=== PATIENT | female | born 1975 | race Asian ===

== ENCOUNTER 2017-06-03 14:02 | Inpatient (IN) | payer MEDICARE, OTHER, SELFPAY ==
[~2017-06-03] VITALS: Ht 157.5 cm; Wt 73.8 kg
[2017-06-03] MEDS ORDERED: SODIUM CHLORIDE FLUSH 10ML SYR IVF ONE (14:30)
[2017-06-03 14:50] LABS: HEMATOCRIT 43.2 % (34.6-47.8); HEMOGLOBIN 14.5 g/dL (11.7-16.4); WHITE BLOOD COUNT 6.3 x10^3/uL (3.4-10)
[2017-06-03 15:04] LABS: BLOOD UREA NITROGEN 8 mg/dL (7-18)
[2017-06-03 15:06] LABS: ASPARTATE AMINO TRANSFERASE 30 U/L (15-37)
[2017-06-03 15:28] LABS: ACETAMINOPHEN < 2 mcg/mL (10-30); IS PT STATUS REG ER OR PRE ER? YES
[2017-06-03 16:43] LABS: DAU SCREEN DISCLAIMER
[2017-06-03 16:49] LABS: PATH.CAST-FLAG NOT PRESENT; SPERM-FLAG NOT PRESENT; SRC-FLAG NOT PRESENT; XTAL-FLAG NOT PRESENT; YLC-FLAG NOT PRESENT
[2017-06-03] MEDS ORDERED: CEFTRIAXONE PMX 1GM/50ML 50 ML IV ONE (17:30)
[2017-06-03] MEDS ORDERED: CEFTRIAXONE PMX 1GM/50ML 50 ML ONE (18:09)
[2017-06-03] MEDS ORDERED: ACETAMINOPHEN 325 MG TABLET PO PRN (21:00)
[2017-06-03] MEDS ORDERED: ONDANSETRON 2MG/ML, 2ML IVPush PRN (21:00)
[2017-06-03] MEDS ORDERED: POTASSIUM CHLORIDE 20 MEQ TAB.ER.PRT ONE (21:04)
[2017-06-03] MEDS: POTASSIUM CHLORIDE 20 MEQ TAB.ER.PRT PO SCH (21:08)
[2017-06-03] MEDS: SODIUM CHLORIDE 0.9% 1,000 ML IV SCH (21:09)
[2017-06-03 23:20] VITALS: BP 146/86
[2017-06-04 03:17] VITALS: BP 117/78
[2017-06-04] MEDS: SODIUM CHLORIDE 0.9% 1,000 ML IV SCH ×2 (06:27→17:30)
[2017-06-04 07:08] VITALS: BP 132/84
[2017-06-04] MEDS: POTASSIUM CHLORIDE 20 MEQ TAB.ER.PRT PO SCH ×2 (08:56→17:31)
[2017-06-04 12:45] VITALS: BP 144/81
[2017-06-04 19:59] VITALS: BP 135/86
[2017-06-05 01:30] VITALS: BP 123/83
[2017-06-05] MEDS: SODIUM CHLORIDE 0.9% 1,000 ML IV SCH ×2 (03:35→18:49)
[2017-06-05 05:17] LABS: HEMATOCRIT 41.7 % (34.6-47.8); HEMOGLOBIN 13.9 g/dL (11.7-16.4); WHITE BLOOD COUNT 5.5 x10^3/uL (3.4-10)
[2017-06-05 05:25] LABS: BLOOD UREA NITROGEN 5 mg/dL (7-18)
[2017-06-05 08:20] VITALS: BP 147/88
[2017-06-05] MEDS: POTASSIUM CHLORIDE 20 MEQ TAB.ER.PRT PO SCH (08:42)
[2017-06-05] MEDS ORDERED: DOCUSATE 100 MG CAPSULE PO PRN (11:30)
[2017-06-05] MEDS ORDERED: ONDANSETRON ODT 4 MG PO PRN (11:30)
[2017-06-05] MEDS ORDERED: POLYETHYLENE GLYCOL 17 GM PACKET PO PRN (11:30)
[2017-06-05] MEDS ORDERED: BISACODYL 10 MG SUPP PR PRN (11:30)
[2017-06-05 13:20] VITALS: BP 143/86
[2017-06-05 13:50] VITALS: BP 126/67
[2017-06-05 19:54] VITALS: BP 139/82
[2017-06-06 01:44] VITALS: BP 131/78
[2017-06-06 07:23] VITALS: BP 132/86
[2017-06-06] MEDS: SODIUM CHLORIDE 0.9% 1,000 ML IV SCH ×2 (07:27→18:00)
[2017-06-06] MEDS ORDERED: LORazepam 2 MG/ML, 1ML IVPush ONE ×3 (14:00→19:00)
[2017-06-06 14:04] VITALS: BP 138/83
[2017-06-06] MEDS ORDERED: LORazepam 2 MG/ML, 1ML IVPush PRN (16:30)
[2017-06-06 19:48] VITALS: BP 128/82
[2017-06-07 01:39] VITALS: BP 121/78
[2017-06-07] MEDS: SODIUM CHLORIDE 0.9% 1,000 ML IV SCH (03:28)
[2017-06-07 04:33] LABS: HEMATOCRIT 38.2 % (34.6-47.8); HEMOGLOBIN 12.9 g/dL (11.7-16.4); WHITE BLOOD COUNT 9.8 x10^3/uL (3.4-10)
[2017-06-07 04:44] LABS: BLOOD UREA NITROGEN 9 mg/dL (7-18)
[2017-06-07 04:49] LABS: ASPARTATE AMINO TRANSFERASE 13 U/L (15-37)
[2017-06-07] MEDS ORDERED: POTASSIUM CHLORIDE 20 MEQ TAB.ER.PRT PO SCH (08:00)
[2017-06-07 08:18] VITALS: BP 138/92
== END 2017-06-07 11:40 | disposition home or self-care (01) | DRG 640 ==
LOC: ED 18:54 → SUATTDRO 19:46 → EDIP 20:48 → 3NW 22:58
PROVIDERS: ADMIT Hospitalist; ATTEND Hospitalist
DX: E87.6 Hypokalemia (principal); G93.40 Encephalopathy, unspecified; E87.8 Other disorders of electrolyte and fluid balance, not elsewhere classified; I10 Essential (primary) hypertension; R31.9 Hematuria, unspecified; R11.2 Nausea with vomiting, unspecified
CPT/HCPCS: 36415; 70450; 71010; 74176; 80048; 80053; 80185; 80307; 80329; 81001; 82140; 83605; 84484; 84702; 85025; 87040; 87086; 93005; 96365; J0696; Q0162; G0479; G0480; J2060; J7030

== ENCOUNTER 2017-09-16 06:46 | Emergency (ER) | payer SELFPAY ==
[~2017-09-16] VITALS: Ht 157.5 cm; Wt 59.1 kg
[2017-09-16 07:20] LABS: BASOPHILS # (AUTO) 0.01 x10^3/uL (0-0.1); BASOPHILS % (AUTO) 0 % (0-1); EOSINOPHILS # (AUTO) 0.15 x10^3/uL (0-0.4); EOSINOPHILS % (AUTO) 3 % (1-7); LYMPHOCYTES # (AUTO) 1.31 x10^3/uL (1-3.4); LYMPHOCYTES % (AUTO) 25 % (22-44); MD NO; MEAN CORPUSCULAR HEMOGLOBIN 26.8 pg (27.0-34.8); MEAN CORPUSCULAR HGB CONC 33.2 g/dL (32.4-35.8); MEAN CORPUSCULAR VOLUME 80.8 fL (80-100); MEAN PLATELET VOLUME 7.8 fL (7.4-10.4); MONOCYTES # (AUTO) 0.44 x10^3/uL (0.2-0.8); MONOCYTES % (AUTO) 8 % (2-9); NEUTROPHILS # (AUTO) 3.29 x10^3/uL (1.8-6.8); NEUTROPHILS % (AUTO) 63 % (42-75); PLATELET COUNT 178 x10^3/uL (130-400); RED BLOOD COUNT 5.36 x10^6/uL (3.82-5.3); RED CELL DISTRIBUTION WIDTH 14.1 % (9.6-15.2)
[2017-09-16 07:32] LABS: ALBUMIN 3.6 g/dL (3.4-5.0); ANION GAP 9 mmol/L (5-15); CALCIUM 8.7 mg/dL (8.5-10.1); CHLORIDE 109 mmol/L (98-107); CREATININE 0.69 mg/dL (0.55-1.02)
[2017-09-16] MEDS ORDERED: POTASSIUM CHLORIDE 20 MEQ TAB.ER.PRT ONE (07:48)
[2017-09-16] MEDS ORDERED: POTASSIUM CHLORIDE 20 MEQ TAB.ER.PRT PO ONE (08:00)
[2017-09-16 08:08] VITALS: BP 140/85
== END 2017-09-16 08:32 | disposition home or self-care (01) ==
LOC: ED 07:42
DX: J20.8 Acute bronchitis due to other specified organisms (principal); B97.89 Other viral agents as the cause of diseases classified elsewhere; F79 Unspecified intellectual disabilities; I10 Essential (primary) hypertension
CPT/HCPCS: 36415; 71046; 80048; 82040; 85025; 99285

== ENCOUNTER 2017-09-21 15:41 | Emergency (ER) | payer OTHER ==
[~2017-09-21] VITALS: Ht 157.5 cm; Wt 68.9 kg
[2017-09-21 15:48] VITALS: BP 132/90
[2017-09-21 16:36] LABS: BASOPHILS # (AUTO) 0.07 x10^3/uL (0-0.1); BASOPHILS % (AUTO) 1 % (0-1); EOSINOPHILS # (AUTO) 0.13 x10^3/uL (0-0.4); EOSINOPHILS % (AUTO) 2 % (1-7); HEMOGRAM NOTE RECHECKED; LYMPHOCYTES % (AUTO) 29 % (22-44); MD NO; MEAN CORPUSCULAR HEMOGLOBIN 26.7 pg (27.0-34.8); MEAN CORPUSCULAR HGB CONC 32.8 g/dL (32.4-35.8); MEAN CORPUSCULAR VOLUME 81.3 fL (80-100); MEAN PLATELET VOLUME 8.3 fL (7.4-10.4); MONOCYTES # (AUTO) 0.48 x10^3/uL (0.2-0.8); MONOCYTES % (AUTO) 6 % (2-9); NEUTROPHILS # (AUTO) 4.78 x10^3/uL (1.8-6.8); NEUTROPHILS % (AUTO) 62 % (42-75); PLATELET COUNT 259 x10^3/uL (130-400); RED BLOOD COUNT 5.91 x10^6/uL (3.82-5.3); RED CELL DISTRIBUTION WIDTH 13.8 % (9.6-15.2)
[2017-09-21 16:38] LABS: ALANINE AMINOTRANSFERASE 27 U/L (12-78); ALBUMIN 4.2 g/dL (3.4-5.0); ANION GAP 11 mmol/L (5-15); CHLORIDE 104 mmol/L (98-107); CREATININE 0.89 mg/dL (0.55-1.02)
[2017-09-21 16:41] LABS: ALKALINE PHOSPHATASE 86 U/L (45-117); BILIRUBIN,TOTAL 0.6 mg/dL (0.2-1.0); TOTAL PROTEIN 9.3 g/dL (6.4-8.2)
[2017-09-21] MEDS ORDERED: POTASSIUM CHLORIDE 20 MEQ TAB.ER.PRT ONE (17:13)
[2017-09-21] MEDS ORDERED: POTASSIUM CHLORIDE 20 MEQ TAB.ER.PRT PO ONE (17:30)
== END 2017-09-21 18:55 | disposition home or self-care (01) ==
LOC: ED 17:00
DX: R05 Cough (principal); I10 Essential (primary) hypertension; Z87.891 Personal history of nicotine dependence
CPT/HCPCS: 36415; 71045; 80053; 85025; 99285